=== PATIENT | female | born 1970 | race Caucasian/White ===

== ENCOUNTER → 2016-09-22 | Outpatient (CLI) | payer OTHER | LOC: FIMAGING 07:32 | PROVIDERS: ATTEND Radiology Diagnostic Radiology | DX: Z98.890 Other specified postprocedural states (principal); I87.2 Venous insufficiency (chronic) (peripheral); I83.91 Asymptomatic varicose veins of right lower extremity ==

== ENCOUNTER → 2016-11-09 | Day surgery (SDC) | payer OTHER ==
[~2016-11-09] MED LIST: SODIUM TETRADECYL SULFATE 60 MG/2 ML VIAL IV ONE
== END | disposition home or self-care (01) ==
LOC: FIMAGING 13:46
PROVIDERS: ATTEND Radiology Diagnostic Radiology
PROC: 3E033TZ Introduction of Destructive Agent into Peripheral Vein, Percutaneous Approach (ICD-10-PCS; principal; 2016-11-09)
DX: I83.93 Asymptomatic varicose veins of bilateral lower extremities (principal)

== ENCOUNTER → 2018-10-10 | Day surgery (SDC) | payer OTHER ==
[~2018-10-10] MED LIST changes: +SODIUM TETRADECYL SULFATE 3% 2 ML VIAL IV ONE; -SODIUM TETRADECYL SULFATE 60 MG/2 ML VIAL IV ONE
== END | disposition home or self-care (01) ==
LOC: FIMAGING 12:49
PROVIDERS: ATTEND Radiology Diagnostic Radiology
PROC: B54DZZA Ultrasonography of Bilateral Lower Extremity Veins, Guidance (ICD-10-PCS; principal; 2018-10-10)
PROC: 3E033TZ Introduction of Destructive Agent into Peripheral Vein, Percutaneous Approach (ICD-10-PCS; principal; 2018-10-10)
DX: I83.813 Varicose veins of bilateral lower extremities with pain (principal)

== ENCOUNTER → 2018-12-13 | Outpatient (CLI) | payer OTHER | LOC: FIMAGING 15:51 ==